=== PATIENT | male | born 1990 | race Two or more races ===

== ENCOUNTER 2025-03-19 16:16 | Emergency (ER) | payer OTHER ==
[~2025-03-19] VITALS: Ht 195.6 cm; Wt 136.1 kg
[2025-03-19 16:24] VITALS: BP 142/83; TEMP 98.4
[2025-03-19 18:19] VITALS: O2SAT 97
== END 2025-03-19 18:20 ==
LOC: ER 16:16
DX: M79.644 Pain in right finger(s) (principal); E11.9 Type 2 diabetes mellitus without complications; I10 Essential (primary) hypertension; Z65.3 Problems related to other legal circumstances
CPT/HCPCS: 73130-TC